=== PATIENT | female | born 1935 | race Caucasian/White ===

== ENCOUNTER → 2017-01-20 | Outpatient (CLI) | payer MEDICARE ==
[~2017-01-20] MED LIST: ACET325 PO; AMAR4TAB PO; ASPI325T PO; GLUCTAB PO; LANTUSP SQ; METO25 PO; OMEP20CA5 PO; PREM0.622 PO; PRESERVISION PO; QUIN10 PO; ROSU20 PO; STOO100C PO; SYSTANE EYE DROPS; TRAM50 PO
[2017-01-20 13:17] LABS: AUTOMATED NEUTROPHIL # 3.8 TH/MM3 (1.8-7.7); BASOPHIL % 0.7 % (0.0-2.0); EOSINOPHIL # 0.3 TH/MM3 (0-0.4); EOSINOPHIL % 4.1 % (0.0-4.0); HEMATOCRIT 33.6 % (35.0-46.0); HEMO FLAGS DIFF FINAL; LYMPH % 30.2 % (9.0-44.0); MEAN CELL VOLUME 92.5 FL (80.0-100.0); MEAN CORPUSCULAR HEMOGLOBIN 31.1 PG (27.0-34.0); MEAN CORPUSCULAR HGB CONC 33.6 % (32.0-36.0); MONO % 8.1 % (0.0-8.0); NEUT % 56.9 % (16.0-70.0); PLATELET COUNT 261 TH/MM3 (150-450); RED BLOOD COUNT 3.63 MIL/MM3 (4.00-5.30); WHITE BLOOD COUNT 6.6 TH/MM3 (4.0-11.0)
[2017-01-20 13:54] LABS: ALKALINE PHOSPHATASE 53 U/L (45-117); ALT (GPT) 18 U/L (10-53); ANION GAP 6 MEQ/L (5-15); AST (GOT) 10 U/L (15-37); BICARBONATE 31.3 MEQ/L (21.0-32.0); BLOOD UREA NITROGEN 35 MG/DL (7-18); CHLORIDE 104 MEQ/L (98-107); GLOMERULAR FILTRATION RATE 59 ML/MIN (>89); GLUCOSE,FASTING 142 MG/DL (74-99); HDL CHOLESTEROL 54.7 MG/DL (40.0-60.0); LDL CHOLESTEROL 51 MG/DL (0-99); POTASSIUM 4.6 MEQ/L (3.5-5.1); SODIUM (NA) 141 MEQ/L (136-145); TOTAL BILIRUBIN ADULT 0.2 MG/DL (0.2-1.0)
[2017-01-20 17:57] LABS: HEMOGLOBIN A1a 1.2 %; HEMOGLOBIN A1b 1.2 %; HEMOGLOBIN Ao 81.5 %; HEMOGLOBIN F 1.5 %; HEMOGLOBIN LA1C 2.5 %; HEMOGLOBIN P3 6.4 %
== END ==
LOC: PLAB 11:23
PROVIDERS: ATTEND Internal Medicine Interventional Cardiology
DX: E78.5 Hyperlipidemia, unspecified (principal); E11.9 Type 2 diabetes mellitus without complications; I25.10 Atherosclerotic heart disease of native coronary artery without angina pectoris; R06.02 Shortness of breath; K22.70 Barrett's esophagus without dysplasia; M54.5 Low back pain; E11.319 Type 2 diabetes mellitus with unspecified diabetic retinopathy without macular edema; I10 Essential (primary) hypertension; E66.9 Obesity, unspecified; D50.9 Iron deficiency anemia, unspecified
CPT/HCPCS: 36415; 80053; 80061; 83036; 84443; 85025

== ENCOUNTER 2017-06-24 15:12 | Emergency (ER) | payer MEDICARE ==
[~2017-06-24] VITALS: Ht 162.6 cm; Wt 105.0 kg
[2017-06-24 15:15] VITALS: BP 143/73; PULSE 83; RESP 20; TEMP 97.4; O2SAT 93
--- NOTE | 2017-06-24 16:05 | PD ---
HPI Chief Complaint: Nosebleed Time Seen by Provider: 15:44 Travel History International Travel<30 days: No Contact w/Intl Traveler<30days: No Traveled to known affect area: No History of Present Illness HPI 81yo F with PMH of DM, CAD presents to the ED with c/o epistaxis today. States it started at 1:30pm today and she has been putting pressure on it. States that for the last 2 weeks, she has been getting more frequent epistaxis and her PMD told her to put some ointment on it. Pt wants her blood check because she has anemia and wants to make sure she didnt lose too much blood. Takes aspirin. PFSH Past Medical History Arthritis: Yes Blood Disorders: No Cancer: No Cardiovascular Problems: Yes High Cholesterol: Yes Diabetes: Yes Endocrine: Yes Genitourinary: No Hypertension: Yes Immune Disorder: No Musculoskeletal: Yes Neurologic: Yes Psychiatric: No Reproductive: No Respiratory: No Migraines: Yes (HX) Myocardial Infarction: Yes Past Surgical History Body Medical Devices: ROCHELLE EYE LENS Cardiac Surgery: Yes (HEART BY-PASS) Coronary Artery Bypass Graft: Yes Eye Surgery: Yes (ROCHELLE CATARACT SX 2008) Gynecologic Surgery: Yes (HYSTERECTOMY) Hysterectomy: Yes Social History Alcohol Use: No Tobacco Use: No Substance Use: No Allergies-Medications (Allergen,Severity, Reaction): Coded Allergies: Adhesives (Unverified Allergy, Intermediate, Rash, 06/24/17) Reported Meds & Prescriptions Reported Meds & Active Scripts Active Review of Systems Except as stated in HPI: all other systems reviewed are Neg Physical Exam Narrative GEN: 81yo F not in distress. SKIN: Warm and dry. ENT: Bilateral nostrils: Dried blood in right nostril. No active bleeding. Throat: No blood in posterior pharynx. Uvula midline. NECK: No JVD. Trachea midline. CV: S1, S2. Lungs: CTA B/L. ABD: soft, NT/ND. Data Data Last Documented VS Vital Signs Date Time Temp Pulse Resp B/P Pulse Ox O2 Delivery O2 Flow Rate FiO2 06/24/17 18:56 65 20 97 Room Air 06/24/17 16:20 158/70 06/24/17 15:15 97.4 Orders Complete Blood Count With Diff (06/24/17 15:58) Basic Metabolic Panel (Bmp) (06/24/17 15:58) Labs Laboratory Tests Test 06/24/17 16:24 White Blood Count 8.4 TH/MM3 Red Blood Count 3.54 MIL/MM3 Hemoglobin 11.0 GM/DL Hematocrit 32.8 % Mean Corpuscular Volume 92.6 FL Mean Corpuscular Hemoglobin 30.9 PG Mean Corpuscular Hemoglobin 33.4 % Concent Red Cell Distribution Width 12.8 % Platelet Count 267 TH/MM3 Mean Platelet Volume 7.4 FL Neutrophils (%) (Auto) 74.3 % Lymphocytes (%) (Auto) 17.3 % Monocytes (%) (Auto) 5.5 % Eosinophils (%) (Auto) 2.3 % Basophils (%) (Auto) 0.6 % Neutrophils # (Auto) 6.2 TH/MM3 Lymphocytes # (Auto) 1.5 TH/MM3 Monocytes # (Auto) 0.5 TH/MM3 Eosinophils # (Auto) 0.2 TH/MM3 Basophils # (Auto) 0.1 TH/MM3 CBC Comment DIFF FINAL Differential Comment Sodium Level 140 MEQ/L Potassium Level 5.2 MEQ/L Chloride Level 105 MEQ/L Carbon Dioxide Level 26.2 MEQ/L Anion Gap 9 MEQ/L Blood Urea Nitrogen 32 MG/DL Creatinine 1.02 MG/DL Estimat Glomerular Filtration 52 ML/MIN Rate Random Glucose 152 MG/DL Calcium Level 8.9 MG/DL [facility] Medical Decision Making Medical Screen Exam Complete: Yes Emergency Medical Condition: Yes Differential Diagnosis Epistaxis vs. anemia Narrative Course 81yo F with complaint of epistaxis today. Pt has been placing pressure on it and it has stopped by the time I evaluated her in the ED exam room. Pt was concern about her blood count so lab work was drawn and H/H is 11/32.8 which is her baseline. Glucose is 152. K: 5.2, but slightly hemolyzed. Pt has been observed in the ED for almost 3 hours and no longer has any epistaxis. Pt reassured. Return precautions given. Diagnosis Primary Impression: Epistaxis Patient Instructions: General Instructions Departure Forms: Tests/Procedures Additional Instructions: Please follow up with your PMD in 3-7 days. Return to the ED if symptoms worsen. Med/Other Pt SpecificInfo: No Change to Meds Disposition: 01 DISCHARGE HOME Condition: Stable Kayla Rae Jun 24, 2017 16:05
[2017-06-24 16:20] VITALS: BP 158/70; PULSE 77; RESP 20; O2SAT 95
[2017-06-24 17:02] LABS: AUTOMATED NEUTROPHIL # 6.2 TH/MM3 (1.8-7.7); BASOPHIL # 0.1 TH/MM3 (0-0.2); BASOPHIL % 0.6 % (0.0-2.0); EOSINOPHIL # 0.2 TH/MM3 (0-0.4); EOSINOPHIL % 2.3 % (0.0-4.0); HEMATOCRIT 32.8 % (35.0-46.0); HEMO FLAGS DIFF FINAL; LYMPH % 17.3 % (9.0-44.0); LYMPHOCYTE # 1.5 TH/MM3 (1.0-4.8); MEAN CELL VOLUME 92.6 FL (80.0-100.0); MEAN CORPUSCULAR HEMOGLOBIN 30.9 PG (27.0-34.0); MEAN CORPUSCULAR HGB CONC 33.4 % (32.0-36.0); MONO % 5.5 % (0.0-8.0); NEUT % 74.3 % (16.0-70.0); PLATELET COUNT 267 TH/MM3 (150-450); RED BLOOD COUNT 3.54 MIL/MM3 (4.00-5.30); RED CELL DISTRIBUTION WIDTH 12.8 % (11.6-17.2); WHITE BLOOD COUNT 8.4 TH/MM3 (4.0-11.0)
[2017-06-24 17:36] LABS: BICARBONATE 26.2 MEQ/L (21.0-32.0)
[2017-06-24 17:39] LABS: POTASSIUM 5.2 MEQ/L (3.5-5.1)
[2017-06-24 18:56] VITALS: PULSE 65; RESP 20; O2SAT 97
== END 2017-06-24 19:10 | disposition home or self-care (01) ==
LOC: NEPE 15:12
DX: R04.0 Epistaxis (principal); E11.9 Type 2 diabetes mellitus without complications; I10 Essential (primary) hypertension; E78.00 Pure hypercholesterolemia, unspecified; I25.2 Old myocardial infarction; Z86.79 Personal history of other diseases of the circulatory system; Z86.2 Personal history of diseases of the blood and blood-forming organs and certain disorders involving the immune mechanism; Z87.39 Personal history of other diseases of the musculoskeletal system and connective tissue; Z86.69 Personal history of other diseases of the nervous system and sense organs
CPT/HCPCS: 80048; 85025; 99283

== ENCOUNTER → 2017-07-20 | Outpatient (CLI) | payer MEDICARE ==
[2017-07-20 15:32] LABS: HEMATOCRIT 33.6 % (35.0-46.0); MEAN CELL VOLUME 94.8 FL (80.0-100.0); MEAN CORPUSCULAR HEMOGLOBIN 30.8 PG (27.0-34.0); MEAN CORPUSCULAR HGB CONC 32.5 % (32.0-36.0); PLATELET COUNT 259 TH/MM3 (150-450); RED BLOOD COUNT 3.55 MIL/MM3 (4.00-5.30); RED CELL DISTRIBUTION WIDTH 13.4 % (11.6-17.2); REVIEW FLAG FINAL; WHITE BLOOD COUNT 7.4 TH/MM3 (4.0-11.0)
== END ==
LOC: CLAB 14:52
PROVIDERS: ATTEND Internal Medicine Interventional Cardiology
DX: E11.9 Type 2 diabetes mellitus without complications (principal); I25.10 Atherosclerotic heart disease of native coronary artery without angina pectoris; R06.02 Shortness of breath; I50.9 Heart failure, unspecified
CPT/HCPCS: 36415; 83880; 85027

== ENCOUNTER → 2017-08-03 | Outpatient (CLI) | payer MEDICARE ==
[2017-08-03 13:33] LABS: BASOPHIL % 0.4 % (0.0-2.0); EOSINOPHIL # 0.3 TH/MM3 (0-0.4); EOSINOPHIL % 3.4 % (0.0-4.0); HEMATOCRIT 32.3 % (35.0-46.0); HEMO FLAGS DIFF FINAL; LYMPH % 25.7 % (9.0-44.0); LYMPHOCYTE # 2.1 TH/MM3 (1.0-4.8); MEAN CELL VOLUME 94.2 FL (80.0-100.0); MEAN CORPUSCULAR HEMOGLOBIN 30.2 PG (27.0-34.0); MONO % 8.9 % (0.0-8.0); NEUT % 61.6 % (16.0-70.0); PLATELET COUNT 254 TH/MM3 (150-450); RED BLOOD COUNT 3.43 MIL/MM3 (4.00-5.30); RED CELL DISTRIBUTION WIDTH 13.2 % (11.6-17.2); WHITE BLOOD COUNT 8.2 TH/MM3 (4.0-11.0)
[2017-08-03 14:02] LABS: ANION GAP 5 MEQ/L (5-15); AST (GOT) 14 U/L (15-37); BICARBONATE 29.1 MEQ/L (21.0-32.0); BLOOD UREA NITROGEN 37 MG/DL (7-18); CHLORIDE 108 MEQ/L (98-107); GLOMERULAR FILTRATION RATE 55 ML/MIN (>89); GLUCOSE,FASTING 115 MG/DL (74-99); POTASSIUM 4.9 MEQ/L (3.5-5.1); SODIUM (NA) 142 MEQ/L (136-145)
[2017-08-03 14:05] LABS: ALKALINE PHOSPHATASE 59 U/L (45-117); ALT (GPT) 21 U/L (10-53); HDL CHOLESTEROL 49.7 MG/DL (40.0-60.0); LDL CHOLESTEROL 37 MG/DL (0-99); TOTAL BILIRUBIN ADULT 0.2 MG/DL (0.2-1.0)
[2017-08-03 17:49] LABS: HEMOGLOBIN A1a 2.1 %; HEMOGLOBIN Ao 81.6 %; HEMOGLOBIN F 1.4 %; HEMOGLOBIN LA1C 2.3 %; HEMOGLOBIN P3 4.8 %
== END ==
LOC: PLAB 11:15
PROVIDERS: ATTEND Family Medicine
DX: I10 Essential (primary) hypertension (principal); E11.319 Type 2 diabetes mellitus with unspecified diabetic retinopathy without macular edema; E78.5 Hyperlipidemia, unspecified; D50.9 Iron deficiency anemia, unspecified
CPT/HCPCS: 36415; 80053; 80061; 83036; 85025

== ENCOUNTER → 2017-08-05 | Outpatient (CLI) | payer MEDICARE ==
[2017-08-05 15:25] LABS: BLOOD GAS BASE EXCESS -0.6 mmol/L (-2-2); BLOOD GAS CARBOXYHEMOGLOBIN 1.5 % (0-4); BLOOD GAS HCO3 24 mmol/L (22-26); BLOOD GAS O2 HGB SATURATION 94 % (90-100); BLOOD GAS OXYGEN CONTENT 13.6 Vol % (12.0-20.0); BLOOD GAS PCO2 39 mmHg (38-42); BLOOD GAS PO2 84 mmHg (61-120); BLOOD GAS TOTAL HGB 10.2 G/DL (12.0-16.0); TEMP CORR TO 98.6
[2017-08-05 15:27] LABS: CRITICAL VALUE NO; DRAW SITE RT RADIAL; FIO2 21 %; NUMBER OF ARTERIAL PUNCTURES 1; STAT NO; ULNAR PULSE PRESENT
--- NOTE | 2017-08-10 10:12 | RSPPFT ---
DATE OF PROCEDURE: 08/05/17 COMMENTS: Spirometry with FVC of 1.6, FEV1 of 1.1, FEV1/FVC ratio at 70%. A positive and significant response to acutely inhaled bronchodilator noted. Slow vital capacity is 42% of predicted. TLC is 63%. Diffusion capacity is 62% and normal when related to alveolar volume. Room air arterial blood gases show pH of 7.40, PCO2 of 38, PO2 of 84. IMPRESSION: 1. Moderately severe airways obstruction. 2. Associated restrictive component. 3. Reduced diffusion capacity but normal when related to alveolar volume. 4. Positive and significant response to acutely inhaled bronchodilator. 5. Adequate oxygenation and alveolar ventilation.
== END ==
LOC: HRSP 12:52
PROVIDERS: ATTEND Internal Medicine Interventional Cardiology
DX: R06.02 Shortness of breath (principal)
CPT/HCPCS: 36600; 82805; 94060; 94726; 94729

== ENCOUNTER → 2017-09-07 | Outpatient (CLI) | payer MEDICARE ==
[2017-09-07 14:01] LABS: TRANSFERRIN IRON PROFILE 273 MG/DL (200-360)
== END ==
LOC: PLAB 10:58
DX: D64.9 Anemia, unspecified (principal)
CPT/HCPCS: 36415; 83540; 83550

== ENCOUNTER → 2018-02-15 | Outpatient (CLI) | payer MEDICARE ==
[2018-02-15 13:46] LABS: AUTOMATED NEUTROPHIL # 3.6 TH/MM3 (1.8-7.7); BASOPHIL % 0.7 % (0.0-2.0); EOSINOPHIL # 0.3 TH/MM3 (0-0.4); EOSINOPHIL % 4.5 % (0.0-4.0); HEMATOCRIT 33.1 % (35.0-46.0); HEMOGLOBIN 10.9 GM/DL (11.6-15.3); LYMPH % 29.8 % (9.0-44.0); LYMPHOCYTE # 1.9 TH/MM3 (1.0-4.8); MEAN CELL VOLUME 94.2 FL (80.0-100.0); MEAN CORPUSCULAR HEMOGLOBIN 31.1 PG (27.0-34.0); MEAN PLATELET VOLUME 7.6 FL (7.0-11.0); MONO % 9.1 % (0.0-8.0); MONOCYTE # 0.6 TH/MM3 (0-0.9); NEUT % 55.9 % (16.0-70.0); PLATELET COUNT 246 TH/MM3 (150-450); RED BLOOD COUNT 3.52 MIL/MM3 (4.00-5.30); RED CELL DISTRIBUTION WIDTH 13.3 % (11.6-17.2); WHITE BLOOD COUNT 6.4 TH/MM3 (4.0-11.0)
[2018-02-15 13:54] LABS: ALBUMIN 3.2 GM/DL (3.4-5.0); ALT (GPT) 21 U/L (10-53); AST (GOT) 17 U/L (15-37); BICARBONATE 27.5 MEQ/L (21.0-32.0); BLOOD UREA NITROGEN 27 MG/DL (7-18); CALCIUM 8.8 MG/DL (8.5-10.1); CHLORIDE 107 MEQ/L (98-107); CHOLESTEROL 113 MG/DL (120-200); CREATININE 0.91 MG/DL (0.50-1.00); GLOMERULAR FILTRATION RATE 59 ML/MIN (>89); GLUCOSE,FASTING 103 MG/DL (74-99); SODIUM (NA) 142 MEQ/L (136-145)
[2018-02-15 14:04] LABS: ALKALINE PHOSPHATASE 61 U/L (45-117); CHOLESTEROL/ HDL RATIO 2.25 RATIO; HDL CHOLESTEROL 50.2 MG/DL (40.0-60.0); LDL CHOLESTEROL 50 MG/DL (0-99); TOTAL BILIRUBIN ADULT 0.3 MG/DL (0.2-1.0); TOTAL PROTEIN 6.7 GM/DL (6.4-8.2); TRIGLYCERIDES 65 MG/DL (42-150)
[2018-02-15 18:22] LABS: HEMOGLOBIN A1C 6.3 % (4.3-6.0)
== END ==
LOC: PLAB 11:01
PROVIDERS: ATTEND Family Medicine
DX: D50.9 Iron deficiency anemia, unspecified (principal); I25.10 Atherosclerotic heart disease of native coronary artery without angina pectoris; E11.319 Type 2 diabetes mellitus with unspecified diabetic retinopathy without macular edema; I10 Essential (primary) hypertension; E78.5 Hyperlipidemia, unspecified; M19.90 Unspecified osteoarthritis, unspecified site
CPT/HCPCS: 36415; 80053; 80061; 83036; 84443; 85025